=== PATIENT | female | born 1975 | race Caucasian/White ===

== ENCOUNTER 2017-05-23 17:28 | Emergency (ER) | payer OTHER ==
[~2017-05-23] VITALS: Ht 167.6 cm; Wt 114.8 kg
[~2017-05-23 17:28] MED LIST: BACTRIM DS1 TAB PO; BISOPRL/HC5 MG/6.25 PO; BP MEDS; CARAFATE1 G1 PO; CIPROFLOXACN500 MG PO; CLEOCIN150 MG PO; HYDROCHLOROT25 MG PO; LISINOPRIL20 MG PO; LISINOPRIL40 MG PO; LORTAB 5/3255 MG PO; NO; PREVACID30 M2 PO
[2017-05-23 18:20] LABS: HEMATOCRIT 42.6 % (37.0-47.0); HEMOGLOBIN 14.3 g/dl (12.0-16.0); IMMATURE GRANULOCYTES 0.2 % (0.0-1.0); MEAN CORPUSCULAR HGB 28.5 pG CALC (26.0-32.0); MEAN CORPUSCULAR HGB CONC 33.6 g/L CALC (32.0-36.0); NEUT# 7.45 thou/uL (2.00-7.15); RED BLOOD COUNT 5.01 mill/uL (4.20-5.60); RED CELL DISTRI WIDTH 12.4 % (11.5-15.5)
[2017-05-23 18:39] LABS: ANION GAP 16 (6-22 (CALC)); BUN 10 mg/dL (7-17); BUN/CREATININE RATIO 12 (12-20 (CALC)); CALCIUM 8.7 mg/dL (8.4-10.2); CARBON DIOXIDE 23 mmol/l (22-30); CHLORIDE 108 mmol/l (95-108); CREATININE 0.8 mg/dL (0.5-1.0); GFR > 60 ML/MIN (>=60 (CALC)); GFR FOR AFR.AMER. > 60 ML/MIN (>=60 (CALC)); GLUCOSE 89 mg/dL (65-105); POTASSIUM 3.9 mmol/l (3.5-5.1); SODIUM 142 mmol/l (137-146)
[2017-05-23] MEDS ORDERED: LISI20TA5 PO (21:09)
[2017-05-23] MEDS ORDERED: HYDROCHLOROT25 MG PO (21:09)
[2017-05-23 21:26] VITALS: BP 197/93
== END 2017-05-23 21:10 | disposition left against medical advice (07) | DRG 305 ==
LOC: ED 17:28
PROVIDERS: Family Medicine
DX: I16.0 Hypertensive urgency (principal); R51 Headache; I10 Essential (primary) hypertension; Z91.19 Patient's noncompliance with other medical treatment and regimen